=== PATIENT | male | born 1955 | race Caucasian/White ===

== ENCOUNTER 2023-08-09 05:25 | Inpatient (IN) | payer OTHER ==
[~2023-08-09] VITALS: Ht 170.2 cm; Wt 84.4 kg
[2023-08-09] MEDS ORDERED: ACETAMINOPHEN 500 MG TABLET ONE (05:41)
[2023-08-09] MEDS ORDERED: oxyCODONE HCL 10 MG TAB.ER.12H PO ONE ×2 (05:41→06:30)
[2023-08-09] MEDS ORDERED: SCOPOLAMINE HYDROBROMIDE 1 MG PATCH .72 H (TRANSDERM-SCOP) TD ONE ×2 (05:41→06:30)
[2023-08-09] MEDS ORDERED: CELECOXIB 100 MG CAPSULE ONE (05:41)
[2023-08-09] MEDS ORDERED: GABAPENTIN 300 MG CAPSULE ONE (05:42)
[2023-08-09] MEDS ORDERED: ceFAZolin SODIUM 2 GM in D5W 100 ML IV ONE (06:15)
[2023-08-09] MEDS ORDERED: ACETAMINOPHEN 500 MG TABLET PO ONE (06:30)
[2023-08-09] MEDS ORDERED: CELECOXIB 100 MG CAPSULE PO ONE (06:30)
[2023-08-09] MEDS ORDERED: GABAPENTIN 300 MG CAPSULE PO ONE (06:30)
[2023-08-09] MEDS ORDERED: LACTULOSE 20 GM/30 ML UDC PO PRN (07:15)
[2023-08-09] MEDS ORDERED: BISACODYL 10 MG/SUPPOSITORY RC PRN (07:15)
[2023-08-09] MEDS ORDERED: DIPHENHYDRAMINE HCL 25 MG CAPSULE PO PRN (07:15)
[2023-08-09] MEDS ORDERED: NALOXONE HCL 0.4 MG/ML AMP (NARCAN) IVP PRN ×4 (07:15→08:30)
[2023-08-09] MEDS ORDERED: METOCLOPRAMIDE HCL 10 MG/2 ML VIAL IVP PRN (07:15)
[2023-08-09] MEDS ORDERED: HYDROmorphone 1 MG/ML INJ. CARTRIDGE IVP PRN ×4 (08:15→11:00)
[2023-08-09] MEDS: LR 1,000 ML IV SCH ×2 (08:15→18:38)
[2023-08-09] MEDS ORDERED: ONDANSETRON HCL 4 MG/2 ML VIAL IVP PRN ×3 (08:15→11:45)
[2023-08-09] MEDS ORDERED: MIDAZOLAM HCL 2 MG/2 ML VIAL (VERSED) IVP PRN (08:15)
[2023-08-09] MEDS ORDERED: MEPERIDINE HCL/PF 25 MG/ML DISP.SYRIN IVP PRN (08:15)
[2023-08-09] MEDS ORDERED: DIPHENHYDRAMINE INJ 50 MG/ML VIAL IVP PRN (08:30)
[2023-08-09] MEDS: DECADRON 4 MG TABLET PO SCH (09:00)
[2023-08-09] MEDS ORDERED: TELM80TA2 PO (09:19)
[2023-08-09] MEDS ORDERED: HYG25 PO (09:19)
[2023-08-09] MEDS ORDERED: traMADol HCL HCL 50 MG TABLET (ULTRAM) PO PRN (11:00)
[2023-08-09] MEDS ORDERED: LORATADINE 10 MG TABLET PO PRN (11:00)
[2023-08-09] MEDS ORDERED: oxyCODONE HCL 5 MG TABLET PO PRN ×2 (11:00)
[2023-08-09 11:02] VITALS: BP_SYST 119; PULSE 72; RESP 16; TEMP 97.4
[2023-08-09 11:07] LABS: BASOPHILS % (AUTO) 0.2 % (0.0-2.0); EOSINOPHILS % (AUTO) 0.2 % (0.0-4.0); HEMATOCRIT 40.6 % (36-54); LYMPHOCYTES # (AUTO) 0.6 K/uL (1.0-5.5); LYMPHOCYTES % (AUTO) 7.8 % (20.5-51.5); MEAN CORPUSCULAR HEMOGLOBIN 26 pg (27-31); MEAN CORPUSCULAR HGB CONC 32 % (32-36); MEAN CORPUSCULAR VOLUME 80 fL (79.0-98.0); MONOCYTES # (AUTO) 0.1 K/uL (0.0-1.0); MONOCYTES % (AUTO) 1.6 % (1.7-9.3); NEUTROPHILS # (AUTO) 7.1 K/uL (1.8-7.7); NEUTROPHILS % (AUTO) 90.2 % (40.0-70.0); PLATELET COUNT (AUTO) 233 K/uL (130-430); RED BLOOD CELL COUNT(AUTO) 5.07 MIL/uL (4.2-6.2); RED CELL DISTRIBUTION WIDTH 15.5 % (9.0-15.0); WHITE BLOOD COUNT (AUTO) 7.9 K/uL (4.8-10.8)
[2023-08-09] MEDS: ceFAZolin SODIUM 2 GM in D5W 50 ML IV SCH ×2 (11:15→20:32)
[2023-08-09] MEDS: ACETAMINOPHEN 500 MG TABLET PO SCH ×2 (14:00→21:52)
[2023-08-09] MEDS: KETOROLAC TROMETHAMINE 10 MG TABLET (TORADOL) PO SCH ×2 (14:00→21:53)
[2023-08-09] MEDS: HYDROmorphone 1 MG/ML INJ. CARTRIDGE IVP PRN ×2 (14:21→18:27)
[2023-08-09 20:00] VITALS: BP_SYST 112; PULSE 78; RESP 18; TEMP 98.3; O2SAT 100; O2SAT 98
[2023-08-09] MEDS: SENNOSIDES/DOCUSATE SODIUM 1 TAB TABLET(SENOKOT-S) PO SCH (20:32)
[2023-08-10 00:10] VITALS: BP_SYST 106; PULSE 68; RESP 18; TEMP 98.7; O2SAT 100
[2023-08-10] MEDS: ceFAZolin SODIUM 2 GM in D5W 50 ML IV SCH (03:46)
[2023-08-10] MEDS: LR 1,000 ML IV SCH (04:15)
[2023-08-10] MEDS: ACETAMINOPHEN 500 MG TABLET PO SCH (05:48)
[2023-08-10] MEDS: KETOROLAC TROMETHAMINE 10 MG TABLET (TORADOL) PO SCH (05:49)
[2023-08-10 05:57] VITALS: BP_SYST 112; PULSE 67; RESP 18; TEMP 98; O2SAT 100
[2023-08-10 06:44] LABS: ALBUMIN 3.1 g/dL (3.4-4.8); CALCIUM 8.9 mg/dL (8.4-11.0); CREATININE 1.35 mg/dL (0.55-1.30); POTASSIUM 3.3 mmol/L (3.5-5.1); TOTAL BILIRUBIN 0.4 mg/dL (0.0-1.0); TOTAL PROTEIN, SERUM 6.3 g/dL (6.4-8.3)
[2023-08-10 08:29] VITALS: BP_SYST 101; PULSE 67; RESP 16; TEMP 97.2; O2SAT 97
[2023-08-10] MEDS ORDERED: ASPIRIN 81 MG TAB.CHEW PO SCH (09:00)
[2023-08-10] MEDS: SENNOSIDES/DOCUSATE SODIUM 1 TAB TABLET(SENOKOT-S) PO SCH (09:14)
[2023-08-10] MEDS: DECADRON 4 MG TABLET PO SCH (09:15)
[2023-08-10] MEDS ORDERED: POTASSIUM CHLORIDE 20 MEQ/PKT PACKET PO ONE (10:15)
[2023-08-10 10:22] VITALS: O2SAT 97
[2023-08-10] MEDS ORDERED: CELECOXIB 200 MG CAPSULE PO SCH (11:00)
[2023-08-10 11:05] VITALS: BP_SYST 114; PULSE 70; RESP 16; TEMP 97.4; O2SAT 96
[2023-08-10 11:56] VITALS: BP_SYST 114; PULSE 70; RESP 16; TEMP 97.4; O2SAT 96
[2023-08-19] MEDS ORDERED: MORPHINE SULFATE 10MG/10ML PF AMP ONE (07:09)
[2023-08-19] MEDS ORDERED: BUPIVACAINE /PF 0.25% 30 ML VIAL INJ ONE (07:09)
[2023-08-19] MEDS ORDERED: NS IRRIG SOLN 1000 ML IR ONE (07:09)
[2023-08-19] MEDS ORDERED: VANCOMYCIN HCL 1000 MG/VIAL IV ONE (07:09)
[2023-08-19] MEDS ORDERED: ePHEDrine sulfate 50 MG/ML VIAL ONE (07:09)
[2023-08-19] MEDS ORDERED: WATER FOR IRRIGATION,STERILE 1,000 ML IRRIG.SOLN IR ONE (07:09)
[2023-08-19] MEDS ORDERED: TRANEXAMIC ACID 1,000 MG/10 ML VIAL ONE (07:09)
[2023-08-19] MEDS ORDERED: MIDAZOLAM HCL/PF 2 MG/2 ML SYRINGE ONE (07:09)
[2023-08-19] MEDS ORDERED: KETOROLAC TROMETHAMINE 30 MG VIAL ONE (07:09)
[2023-08-19] MEDS ORDERED: PROPOFOL 200MG/ 20ML VIAL (DIPRIVAN) IV ONE (07:09)
[2023-08-19] MEDS ORDERED: LIDOCAINE 2%, 20 ML MDV ONE (07:09)
[2023-08-19] MEDS ORDERED: DEXAMETHASONE SOD PHOSPHATE 4 MG/ML VIAL ONE (07:09)
[2023-08-19] MEDS ORDERED: METOCLOPRAMIDE HCL 10 MG/2 ML VIAL ONE (07:09)
== END 2023-08-10 13:25 | disposition home or self-care (01) | DRG 470 ==
LOC: SMU 05:25
PROVIDERS: ADMIT Student in an Organized Health Care Education/Training Program; ATTEND Student in an Organized Health Care Education/Training Program
PROC: 0SRD0J9 Replacement of Left Knee Joint with Synthetic Substitute, Cemented, Open Approach (ICD-10-PCS; principal; 2023-08-09 07:19)
DX: M17.12 Unilateral primary osteoarthritis, left knee (principal)
CPT/HCPCS: 36415; 73560-TC; 80053; 85025; 87081; 88305; 88311; 96379; 97110-GP; 97116-GP; 97163-GP; 97530-GP; J1100; J1170; J1885; J2001; J2274; J2704; J2765; J3370; J3465; J3490; J7060; J8540

== ENCOUNTER 2023-12-19 11:26 | Emergency (ER) | payer OTHER ==
[~2023-12-19] VITALS: Ht 167.6 cm; Wt 81.2 kg
[~2023-12-19 11:26] MED LIST: HYG25 PO; TELM80TA2 PO
[2023-12-19 11:31] VITALS: BP_SYST 126; PULSE 85; RESP 18; TEMP 98.3; O2SAT 96
[2023-12-19 13:04] LABS: BASOPHILS % (AUTO) 0.6 % (0.0-2.0); EOSINOPHILS # (AUTO) 0.2 K/uL (0.0-0.4); HEMATOCRIT 36.1 % (36-54); HEMOGLOBIN 12.3 g/dL (14.0-18.0); LYMPHOCYTES # (AUTO) 1.2 K/uL (1.0-5.5); LYMPHOCYTES % (AUTO) 16.2 % (20.5-51.5); MEAN CORPUSCULAR HEMOGLOBIN 27 pg (27-31); MEAN CORPUSCULAR HGB CONC 34 % (32-36); MEAN CORPUSCULAR VOLUME 80 fL (79.0-98.0); MONOCYTES # (AUTO) 0.7 K/uL (0.0-1.0); NEUTROPHILS # (AUTO) 5.3 K/uL (1.8-7.7); NEUTROPHILS % (AUTO) 71.2 % (40.0-70.0); PLATELET COUNT (AUTO) 367 K/uL (130-430); RED BLOOD CELL COUNT(AUTO) 4.54 MIL/uL (4.2-6.2); RED CELL DISTRIBUTION WIDTH 15.3 % (9.0-15.0); WHITE BLOOD COUNT (AUTO) 7.4 K/uL (4.8-10.8)
[2023-12-19] MEDS ORDERED: SULF1TAB48 PO (13:34)
[2023-12-19] MEDS: cefTRIAXone 1 GM IVPB PREMIX 50 ML IV ONE (13:45)
[2023-12-19] MEDS: VANCOMYCIN HCL 1.25 GM/NS 250 ML IV ONE (14:57)
[2023-12-19 16:41] VITALS: BP_SYST 128; PULSE 72; RESP 17; TEMP 98.5; O2SAT 96
== END 2023-12-19 16:42 | disposition home or self-care (01) ==
LOC: SED 11:26
DX: L03.115 Cellulitis of right lower limb (principal); Z98.890 Other specified postprocedural states
CPT/HCPCS: 99284; 96365; 96367; 85025; 87040; 36415; J0696; J3370